=== PATIENT | female | born 1960 | race Caucasian/White ===

== ENCOUNTER → 2016-10-22 | Day surgery (SDC) | payer OTHER ==
[~2016-10-22] MED LIST: ALLEGRA ALLERG180 MG PO; AMITRIPTYLINE H50 MG PO; ATORVASTATIN CA20 MG PO; COUMADIN PO; DITROPAN5 MG PO; EFFEXOR PO; FLEXERIL10 MG PO; FLUOXETINE HCL20 M1 PO; GABAPENTIN300 MG PO; INHALER INH; ISOSORBIDE DINI30 MG PO; LONG ACTING INSULIN SUBQ; METFORMIN HCL500 M1 PO; METOPROLOL PO; MOTION RELIEF25 MG PO; NITROSTAT0.4 MG SL; NOVOLOG FL100 UNIT/1 SUBQ; PANTOPRAZOLE SO40 MG PO; RANITIDINE HCL150 M1 PO; REMERON45 MG PO; SYMBICORT INH; ULTRAM PO; VITAMIN D2 PO; XOPENEX45 MCG/15 INH
--- NOTE | ~2016-10-22 | OR ---
Unit #: [id number] #: [id number] Patient: TREVA CALVERT [id number] [address] [id number] MR#: [id number] NAME: TREVA CALVERT ROOM: Date of Procedure: 10/22/2016 Admission Date: 10/22/2016 Surgeon: Coleman Rosado III, M.D. : 1960 Attending Physician: Coleman Rosado III, M.D. Referring Physician: Coleman Rosado III, M.D. Primary Care Physician: Serafin Coe Aprn OPERATIVE REPORT PREOPERATIVE DIAGNOSES Screening colonoscopy and history of polyps. POSTOPERATIVE DIAGNOSIS Normal colonoscopy. PROCEDURE PERFORMED Colonoscopy to cecum. ANESTHESIA MAC. SPECIMENS None. COMPLICATIONS None apparent. INDICATIONS FOR PROCEDURE This is a 56-year-old lady, who had her last colonoscopy approximately 5 years ago and had a precancerous polyp. She is here today for colonoscopy. DESCRIPTION OF PROCEDURE After consent was obtained, the patient was brought to the endoscopy suite and placed in the left lateral decubitus position. We titrated the above sedation. I performed a rectal exam and she had a non-thrombosed external hemorrhoid. There were no other masses seen. The scope was placed within the rectal vault. Air was insufflated. I navigated the scope all the way to the cecum without any difficulty. She had normal mucosa. No evidence any polyps or masses and no diverticular disease was seen. The scope was retroflexed within the rectum. No other masses were seen. The scope was then carefully withdrawn. The patient tolerated the procedure without any problems and returned to the recovery room in stable condition. Dictated by... Coleman Rosado III, M.D. VCL/modl TD: 10/22/2016 12:47 JOB #: [id number] Unit #: [id number] #: [id number] Patient: TREVA CALVERT OPERATIVE REPORT Page 1 of 1 X Coleman Rosado III, MD X PROCEDURE OPERATIVE NOTE
== END | disposition home or self-care (01) ==
LOC: COPS 09:40
DX: Z12.11 Encounter for screening for malignant neoplasm of colon (principal); K64.4 Residual hemorrhoidal skin tags; K21.9 Gastro-esophageal reflux disease without esophagitis; J45.909 Unspecified asthma, uncomplicated; E11.9 Type 2 diabetes mellitus without complications; I25.2 Old myocardial infarction; Z86.010 Personal history of colon polyps; Z88.0 Allergy status to penicillin; Z88.2 Allergy status to sulfonamides; Z88.5 Allergy status to narcotic agent; Z88.1 Allergy status to other antibiotic agents; Z90.710 Acquired absence of both cervix and uterus; Z90.49 Acquired absence of other specified parts of digestive tract; Z98.890 Other specified postprocedural states; Z79.4 Long term (current) use of insulin; Z79.899 Other long term (current) drug therapy; Z79.51 Long term (current) use of inhaled steroids; Z79.84 Long term (current) use of oral hypoglycemic drugs
CPT/HCPCS: 82947